=== PATIENT | female | born 1960 | race Caucasian/White ===

== ENCOUNTER 2022-11-16 10:20 | Inpatient (IN) | payer OTHER, SELFPAY ==
[2022-11-16] VITALS (21 sets, daily range): BP systolic 140–176; BP diastolic 89–122; PULSE 96–119; RESP 12–19; TEMP 36.1–36.4; O2SAT 92–98; BMI 27.6
--- NOTE | ~2022-11-16 | XR_ITS ---
EXAM: XR abdomen NG/feed tube insert DATE: 11/16/2022 21:20 HISTORY: post NG tube placement . COMPARISON: 11/16/2022 at 3:22 PM. FINDINGS: Clear lung bases. NG tube, tip and side port project over the stomach. Dilated loop of sma ll bowel in the central abdomen. No organomegaly. No abnormal abdominal calcification. Regional bones and soft tissues normal for age. IMPRESSION: NG tube, in good position. Dilated small bowel. Reviewed, dictated and finalized at location K. NESS INTERN
--- NOTE | ~2022-11-16 | XR_ITS ---
EXAMINATION: XR abdomen/kub 1V DATE: 11/16/2022 15:29 INDICATION: Abdominal pain. TECHNIQUE: A supine view of the abdomen on 2 radiographs was obtained. COMPARISON: CT abdomen and pelvis 02/22/2019 FINDINGS: There is dilated small bowel in the left abdomen. The colon is decompressed. There are phle boliths in the pelvis. IMPRESSION: 1. Dilated small bowel, consistent with adynamic ileus versus small bowel obstruction. Consider CT . Reviewed, dictated and finalized at location A. NE CONSULTANT IMPRESSION: 1. Dilated small bowel, consistent with adynamic ileus versus small bowel obstr uction. Consider CT .
--- NOTE | ~2022-11-16 | XR_ITS ---
Supine views of the abdomen Clinical history: Small bowel obstruction Findings: Bowel gas pattern is nonspecific, with NG tube in place. No evidence for obstruction or neisha e air. No abnormal mass lesion or calcification is seen. Osseous structures are intact. Impression: NG tube in place. Nonspecific bowel gas pattern. Reviewed, dictated and finalized at [facility]. SALTER Impression: NG tube in place. Nonspecific bowel gas pattern.
--- NOTE | ~2022-11-16 | CT_ITS ---
EXAMINATION: CT abdomen pelvis w con DATE: 11/16/2022 19:17 INDICATION: mid abd pain, Hx of SBO, possible SBP on XR TECHNIQUE: Computed tomography (CT) of the abdomen and pelvis was performed with 100 mL Omnipaque-350 intravenous contrast. Automated exposure control and iterative reconstruction technique were employe d. The dose-length product was 307.36 mGy-cm. COMPARISON: 02/22/2019. FINDINGS: Lower thorax: Unremarkable Liver: Mild diffuse fatty infiltration. Biliary/Gallbladder: Gallbladder is normal. No bile duct dilation. Pancreas: No mass or duct dilation. Spleen: Normal. Adrenals:No mass. Kidneys: No mass, stone, or hydronephrosis. GI tract: Multiple loops of dilated small bowel in the left mid and lower abdomen. Transition point i n the deep pelvis just proximal to an area of segmental small bowel wall edema. Interloop fluid. No p neumatosis. No portal venous gas. No large bowel dilation. Normal appendix. Mesentery/Peritoneum: No mass or free air. Small volume perihepatic, perisplenic, and deep pelvic flu id. Retroperitoneum: No mass. Atherosclerotic abdominal aortic and/or arterial calcifications. Pelvis: Decompressed urinary bladder. Surgically absent uterus.. Soft Tissues: Soft tissues and body wall unremarkable. Bones: No acute osseous finding. IMPRESSION: Recurrent small bowel obstruction, likely secondary to stricture from adjacent segmental ischemic, in fectious, or inflammatory small bowel disease, or possibly a deep pelvic adhesion. Small volume ascit es. Reviewed, dictated and finalized at location K. PRESIDENT SUPPLY CHAIN IMPRESSION: Recurrent small bowel obstruction, likely secondary to stricture from adjacent segmental ischemic, infectious, or inflammatory small bowel disease, or possibl y a deep pelvic adhesion. Small volume ascites.
--- NOTE | ~2022-11-16 | XR_ITS ---
EXAMINATION: XR sm bowel follow through WS DATE: 11/18/2022 11:36 INDICATION: Small bowel obstruction TECHNIQUE: Signal Worker radiograph(s) of the abdomen was/were obtained. Oral contrast was administered, and sequential radiographs of the abdomen were obtained until oral contrast was noted to be in the proxi mal colon. Spot fluoroscopic images of the small bowel were obtained. Fluoroscopy exposure time was 1 .6 minutes. The DAP for this procedure was 31.437 Gycm2. COMPARISON: 02/23/2019 FINDINGS: Transit time from the stomach to proximal colon was approximately 1.5 hours. There is kathy l caliber and mucosal fold pattern throughout the small bowel. Terminal ileum appears unremarkable. No tethering or abnormal mass effect observed upon the small bowel with real-time fluoroscopy. IMPRESSION: 1. Unremarkable small bowel follow-through. Reviewed, dictated and finalized at location A. S DEVELOPMENT EXECUTIVE
[2022-11-16 10:53] LABS: Basophils Absolute Auto 0.1 K/mm3 (0.0-0.1); Basophils Percent Auto 0.6 % (0.2-1.2); Eosinophils Percent Auto 0.1 % (0-4.4); Hematocrit 44.3 % (37.0-47.0); Hemoglobin 14.5 g/dL (12.0-15.0); Immature Granulocyte Absolute 0.05 K/mm3 (0.00-0.031); Immature Granulocyte Percent A 0.5 % (0-0.5); Lymphocytes Absolute Auto 0.97 K/mm3 (0.9-3.2); Lymphocytes Percent Auto 9.2 % (18.3-44.2); Mean Corpuscular HGB Conc 32.7 g/dl (32-36); Mean Corpuscular Hemoglobin 30.1 pg (26-34); Mean Corpuscular Volume 92.1 fl (80-100); Mean Platelet Volume 9.2 fl (7.4-10.4); Monocytes Absolute Auto 0.4 K/mm3 (0.1-0.6); Monocytes Percent Auto 3.5 % (2.6-8.5); Neutrophils Percent Auto 86.1 % (45.5-73.1); Platelet Count Result 373 k/mm3 (150-375); Red Blood Count 4.81 M/mm3 (4.2-5.4); Red Cell Distribution Width 13.1 % (11.5-14.5); White Blood Count 10.5 K/mm3 (4.5-10.0)
[2022-11-16 11:02] LABS: Alanine Aminotransferase 36 U/L (6-35); Alkaline Phosphatase 102 U/L (38-126); Anion Gap 10 mmol/L (8-16); Aspartate Amino Transferase 35 U/L (14-36); Bilirubin,Total 0.9 mg/dL (0.2-1.3); Blood Urea Nitrogen 17 mg/dL (7-17); Calcium 10.1 mg/dL (8.4-10.2); Carbon Dioxide 29 mmol/L (22-30); Chloride 98 mmol/L (98-107); Estimated CRCL calculation 64 ml/min; Estimated Glomerular Filt Rate > 60; Glucose 123 mg/dL (65-110); Lipase 77 U/L (23-300); Potassium 3.8 mmol/L (3.4-5.0); Sodium 137 mmol/L (137-145)
[2022-11-16 11:31] LABS: Add Urine Microscopic? YES; Appearance Urine Clear (Clear); Bilirubin Urine Negative (Negative); Blood Urine Negative (Negative); Color Urine Yellow (Yellow); Glucose Urine UA Negative (Negative); Ketones Urine 1+ mg/dL (Negative); Leukocyte Esterase Ur Negative LEU/UL (Negative); Nitrate Urine Negative (Negative); Protein Urine Negative (Negative); Specific Grav Ur 1.015 (1.001-1.035); Urobilinogen Urine 0.2 mg/dL (<2.0)
[2022-11-16 11:38] LABS: Mucus Urine Rare /lpf; RBC Urine 0-2 /hpf (0-2); Squamous Epithelial Cell Urine Few /hpf (Few); WBC Urine 0-3 /hpf
[2022-11-16 19:10] LABS: Lactic Acid Reflex 1.4 mmol/L (0.7-2.0)
--- NOTE | 2022-11-16 19:12 | ED.ABDPAIN ---
HPI - Abdominal Pain General Chief Complaint: Abdominal Pain <KAITLIN Limon Filed: 11/17/22 02:07> Stated Complaint: abd pain <KAITLIN Lmion Filed: 11/17/22 02:07> Time Seen by Provider: 11/16/22 18:46 <KAITLIN Limon Filed: 11/17/22 02:07> Source: patient and old records reviewed <KAITLIN Limon Filed: 11/17/22 02:07> Mode of arrival: ambulatory <KAITLIN Limon Filed: 11/17/22 02:07> Limitations: no limitations <KAITLIN Limon Filed: 11/17/22 02:07> History of Present Illness HPI narrative: Patient is a 62 y/o female who presents to the ED with c/o upper abdominal pain. Patient reports she developed pain in her upper abdomen around 2 AM this morning. Pain has been persistent since then. She has not ate anything today, and did drink a very small amount of fluid. She has a history of 2 previous bowel obstructions, and states pain feels similar. She had diarrhea this morning and an episode of vomiting in the ED waiting room, but states she forced herself to vomit. Denies current nausea. She has not taken anything for pain. She does report acid reflux symptoms and states she did not take her omeprazole today. Denies any fever, rectal bleeding. Per records, patient last had small bowel obstruction in 2019 which was treated conservatively with NG tube, bowel rest. Patient has history of hysterectomy and oophorectomy in the past. <KAITLIN Limon Filed: 11/17/22 02:07> Related Data Home Medications: Home Medications Medication Instructions Recorded Confirmed atorvastatin 10 mg tablet 10 mg PO DAILY 11/16/22 11/16/22 cholecalciferol (vitamin D3) 125 125 mcg PO DAILY 11/16/22 11/16/22 mcg (5,000 unit) tablet (Vitamin D3) multivitamin 1 tablet PO DAILY 11/16/22 11/16/22 omeprazole 20 mg capsule,delayed 20 mg PO BID 11/16/22 11/16/22 release <KAITLIN Limon Last Filed: 11/17/22 02:07> Allergies/Adverse Reactions: Allergies Allergy/AdvReac Type Severity Reaction Status Date / Time Sulfa (Sulfonamide Allergy Severe HIVES Verified 11/16/22 20:24 Antibiotics) <Julianne Aldridge PA-C - Last Filed: 11/17/22 02:07> Review of Systems Review of Systems: CONSTITUTIONAL: Denies fever, chills, or sweats. CARDIOVASCULAR: Denies chest pain. RESPIRATORY: Denies dyspnea. GASTROINTESTINAL: See HPI. GENITOURINARY: Denies dysuria or hematuria. <KAITLIN Limon Last Filed: 11/17/22 02:07> All systems reviewed & are unremarkable except as noted in HPI and below <KAITLIN Limon Last Filed: 11/17/22 02:07> [facility] Past Medical History Medical History: Medical History GERD (gastroesophageal reflux disease) SBO (small bowel obstruction) Thyroid disorder <KAITLIN Limon Last Filed: 11/17/22 02:07> Surgical History Surgical History: Surgical History History of hysterectomy History of oophorectomy <KAITLIN Limon Last Filed: 11/17/22 02:07> Family History Family History: Family History Father Cancer Hypertension Mother Kidney disease Hypertension Sibling Kidney disease Grandparent Cancer Kidney disease <KAITLIN Limon Last Filed: 11/17/22 02:07> Social History Social History: Social History Smoking status: Never smoker Alcohol intake: current Substance use: never Lack of Transportation: No Lack of Food: Never True Current Housing: I Have Housing Concerned About Future Housing: No Difficulty Paying Gas/Electric Bills: No Difficulty Paying for Meds: No Currently Unemployed:
--- NOTE | 2022-11-16 20:12 | PM.IMHP ---
H&P: HPI History of Present Illness Date/Time: 11/16/22 20:12 Chief Complaint: Abdominal pain Narrative: This is a 62-year-old female with past medical history significant for dyslipidemia, GERD, recurrent small-bowel obstruction, remote history of hysterectomy, remote history of oophorectomy. Patient presents to the emergency room due to abdominal pain diffusely localized intermittent 10/10 in intensity colic like for 1 day duration has not been able to eat accompanied by nausea and vomiting had 1 small bowel movement the day prior has not been able to pass gas, denies any fevers, rigors, chills, hematemesis, melena, bright red blood per rectum. Preliminary workup was significant for abdominal x-ray was reported as: IMPRESSION: 1. Dilated small bowel, consistent with adynamic ileus versus small bowel obstruction. Consider CT . CT of abdomen and pelvis was reported as: FINDINGS: Lower thorax: Unremarkable Liver: Mild diffuse fatty infiltration.? Biliary/Gallbladder: Gallbladder is normal. No bile duct dilation. Pancreas: No mass or duct dilation. Spleen: Normal. Adrenals:No mass. Kidneys: No mass, stone, or hydronephrosis. GI tract: Multiple loops of dilated small bowel in the left mid and lower abdomen. Transition point in the deep pelvis just proximal to an area of segmental small bowel wall edema. Interloop fluid. No pneumatosis. No portal venous gas. No large bowel dilation. Normal appendix. Mesentery/Peritoneum: No mass or free air. Small volume perihepatic, perisplenic, and deep pelvic fluid. Retroperitoneum: No mass. Atherosclerotic abdominal aortic and/or arterial calcifications. Pelvis: Decompressed urinary bladder. Surgically absent uterus.. Soft Tissues: Soft tissues and body wall unremarkable. Bones:? No acute osseous finding. IMPRESSION: Recurrent small bowel obstruction, likely secondary to stricture from adjacent segmental ischemic, infectious, or inflammatory small bowel disease, or possibly a deep pelvic adhesion. Small volume ascites. Review of Systems Review of Systems: Presents to the emergency room with abdominal pain, nausea, vomiting, constipation, abdominal distention. Constitutional: Constitutional: Denies chills, Denies fatigue, Denies fever(s), Denies lethargy, Denies malaise, Denies night sweats, Reports poor appetite and Denies weakness Eyes: Eyes: Denies change in vision ENT: Denies dysphagia, Denies nasal congestion, Denies nasal discharge and Denies odynophagia Cardiovascular: Cardiovascular: Denies chest pain, Denies syncope, Denies irregular heart rhythm, Denies leg edema, Denies lightheadedness, Denies radiating jaw, neck or arm pain and Denies dyspnea Respiratory: Respiratory: Reports change in phlegm color, Denies chest congestion, Denies cough, Denies pain on inspiration and Denies dyspnea Gastrointestinal: Gastrointestinal: Reports abdominal pain, Denies melena, Reports bloating, Denies hematochezia, Denies coffee ground emesis, Denies dyspepsia, Denies heartburn, Denies diarrhea, Reports nausea and Reports vomiting Genitourinary: Genitourinary: Denies dysuria Musculoskeletal: Musculoskeletal: Denies myalgias, Denies joint swelling and Denies muscle weakness Integumentary/Breasts: Skin/Breast: Denies rash Neurologic: Denies vertigo, Denies dizziness, Denies focal weakness and Denies Sensory deficit (Neuro) Psychiatric: Psychiatric: Reports no additional psychiatric complaints Endocrine: Endocrine: Denies cold intolerance, Denies flushing, Denies heat intolerance, Denies polyphagia, Denies polydipsia and Denies palpitations Hematologic/Lymphatic: Hematologic/Lymphatic: Reports no additional hematologic/lymphatic complaints and Reports as per HPI Allergic/Immunologic: Allergic/Immunologic: Reports no additional allergic/immunologic complaints and Reports as per HPI [facility] Past Medical History Medical History GERD (gastroeso
[2022-11-16] MEDS: SODIUM CHLORIDE 0.9% IV 1,000 ML 999 ML IV CONT (20:24)
[2022-11-16] MEDS: ONDANSETRON INJ 4 MG/2 ML VIAL IV PUSH (20:25)
[2022-11-16] MEDS: PANTOPRAZOLE SODIUM IV 40 MG VIAL IV PUSH (20:27)
[2022-11-16 20:36] LABS: Influenza A QL RT-PCR Negative (Negative); Influenza B QL RT-PCR Negative (Negative); RSV RNA, RT-PCR Negative (Negative); SARS-CoV-2 RNA PCR Negative
--- NOTE | 2022-11-16 21:14 | PC.NURSE ---
DR. Leon at bedside and confirmed NG placement and verbalized okay to hook pt up to low-intermittent at this time.
[2022-11-16] MEDS: MORPHINE SULFATE (*CRX) 4 MG/ML INJ IV PUSH (21:52)
--- NOTE | 2022-11-16 22:31 | ADMGEN ---
This patient, Jeanette Gandara, was admitted to [facility] Surg Room 314-01. Patient/family oriented to hospital policies and general routines including ID bracelet, bed and alarms, visiting hours, pain management, procedures, bathroom and other care routines, personal items, smoking policy, room service/diet, and visiting hours. Information on how to activate the Rapid Response Team has been discussed. Patient/Family are encouraged to report perceived risks to care and to ask questions if they do not understand what they are told or what they should do.
[2022-11-17] MEDS: DEXTROSE 5%/0.45% SOD CHL 1,000 ML 75 ML IV CONT ×2 (05:36→20:09)
[2022-11-17 06:00] VITALS: BP 110/74; PULSE 82; RESP 16; TEMP 36.4; O2SAT 93
[2022-11-17 08:12] LABS: Basophils Percent Auto 0.5 % (0.2-1.2); Eosinophils Absolute Auto 0.2 K/mm3 (0-0.3); Eosinophils Percent Auto 2.2 % (0-4.4); Hematocrit 38.4 % (37.0-47.0); Hemoglobin 12.3 g/dL (12.0-15.0); Immature Granulocyte Absolute 0.02 K/mm3 (0.00-0.031); Immature Granulocyte Percent A 0.3 % (0-0.5); Lymphocytes Absolute Auto 1.82 K/mm3 (0.9-3.2); Lymphocytes Percent Auto 24.7 % (18.3-44.2); Mean Corpuscular Hemoglobin 30.2 pg (26-34); Mean Corpuscular Volume 94.3 fl (80-100); Mean Platelet Volume 9.2 fl (7.4-10.4); Monocytes Absolute Auto 0.7 K/mm3 (0.1-0.6); Monocytes Percent Auto 10.1 % (2.6-8.5); Neutrophils Absolute Auto 4.6 K/mm3 (1.3-6.7); Neutrophils Percent Auto 62.2 % (45.5-73.1); Platelet Count Result 281 k/mm3 (150-375); Red Blood Count 4.07 M/mm3 (4.2-5.4); Red Cell Distribution Width 13.5 % (11.5-14.5); White Blood Count 7.4 K/mm3 (4.5-10.0)
[2022-11-17 08:28] LABS: Alanine Aminotransferase 24 U/L (6-35); Albumin Level 3.7 g/dL (3.5-5.1); Alkaline Phosphatase 67 U/L (38-126); Anion Gap 5 mmol/L (8-16); Aspartate Amino Transferase 23 U/L (14-36); Bilirubin,Total 0.8 mg/dL (0.2-1.3); Blood Urea Nitrogen 21 mg/dL (7-17); Calcium 8.5 mg/dL (8.4-10.2); Carbon Dioxide 31 mmol/L (22-30); Chloride 99 mmol/L (98-107); Estimated CRCL calculation 57 ml/min; Estimated Glomerular Filt Rate > 60; Glucose 113 mg/dL (65-110); Potassium 3.4 mmol/L (3.4-5.0); Sodium 135 mmol/L (137-145)
[2022-11-17] MEDS: ENOXAPARIN 40 MG/0.4 ML SYRINGE SUB-Q (09:05)
[2022-11-17] MEDS: ONDANSETRON INJ 4 MG/2 ML VIAL IV PUSH ×3 (10:42→20:40)
--- NOTE | 2022-11-17 12:38 | PM.CNGS ---
Assessment and Plan Assessment and plan (1) SBO (small bowel obstruction): Code(s): K56.609 - Unspecified intestinal obstruction, unspecified as to partial versus complete obstruction Status: Acute Assessment and Plan: I have reviewed the imaging and discussed the findings with the patient. She has evidence of a small-bowel obstruction with transition point in the deep pelvis. She has had fairly minimal surgery in the past however what surgery she has had has been in the pelvis which raises suspicion for adhesions as the cause of this obstruction. Patient is showing some slight bowel function with passing of flatus and symptomatically she does appear to be improving. Will continue NG decompression today and get a follow-up abdominal x-ray tomorrow morning. Could consider Gastrografin small-bowel follow-through if there is still no sign of complete resolution. I discussed with patient that avoiding surgery would be the goal but if she is still showing signs of bowel obstruction she might eventually require either laparoscopic or exploratory surgery. (2) History of hysterectomy: Code(s): Z90.710 - Acquired absence of both cervix and uterus Status: Acute (3) History of oophorectomy: Status: Acute History of Present Illness Consult details Consult date: 11/17/22 Reason for consult: other (bowel obstruction) Requesting physician: Julianne Aldridge PA-C Narrative: This is a 62-year-old woman who I am asked to see for a small-bowel obstruction. She began having abdominal pain and slightly loose stool around 2:00 a.m. yesterday morning. She was feeling slightly bloated and nauseated as well. Her pain was continuing to progress throughout the day and therefore she presented to the emergency department last night. She did vomit once in the waiting room in the emergency department. She denies any particular food that she ate that could have caused this, however she does feel that she ate a lot over new year's Day and did report eating a lot of peanuts. She denies any other ill contacts, denies hematochezia or melena, and denies prior history of inflammatory bowel disease. A CT of her abdomen and pelvis showed evidence of a small-bowel obstruction with small bowel wall thickening just distal to this area. An NG tube was placed in the emergency department and she was admitted for further treatment. She does feel that her pain has improved since NG was placed. She is passing some flatus but has not had a bowel movement since being admitted. The patient has had partial bowel obstructions in the past. She had an episode in 2007 which was about 10 months after undergoing a vaginal hysterectomy. She then also had another episode in 2019. Both episodes resolved with NG tube decompression and bowel rest. Review of Systems Review of Systems: All systems reviewed & are unremarkable except as noted in HPI and below Constitutional: Constitutional: Denies chills and Denies fever(s) Eyes: Eyes: Denies change in vision ENT: Denies hearing loss, Denies neck pain and Denies sore throat Cardiovascular: Cardiovascular: Denies chest pain and Denies dyspnea Respiratory: Respiratory: Denies cough, Denies dyspnea and Denies wheezing Gastrointestinal: Gastrointestinal: Reports as per HPI Genitourinary: Genitourinary: Denies hematuria and Denies dysuria Musculoskeletal: Musculoskeletal: Denies arthralgias, Denies joint swelling and Denies neck pain Allergic/Immunologic: Allergic/Immunologic: Denies wheezing [facility] Past Medical History Medical History GERD (gastroesophageal reflux disease) SBO (small bowel obstruction) Thyroid disorder Surgical History Surgical History History of hysterectomy History of oophorectomy Family History Family History (Reviewed 11/17/22 @ 12:45 by Jameson Kaur
--- NOTE | 2022-11-17 12:39 | PM.IMPN ---
Progress Note: A&P Assessment and Plan (1) SBO (small bowel obstruction): Code(s): K56.609 - Unspecified intestinal obstruction, unspecified as to partial versus complete obstruction Status: Acute Assessment and Plan: -noted on CT abd/pelv -NPO w/ ice chips per surgery -continue NG tube -further recommendations per surgery (2) Nausea and vomiting: Code(s): R11.2 - Nausea with vomiting, unspecified Status: Acute Assessment and Plan: -secondary to above -improving, continue supportive care (3) Abdominal pain: Code(s): R10.9 - Unspecified abdominal pain Status: Acute Assessment and Plan: -as above (4) GERD (gastroesophageal reflux disease): Code(s): K21.9 - Gastro-esophageal reflux disease without esophagitis Status: Acute Assessment and Plan: -resume PPI when no longer NPO Subjective Date/time seen: 11/17/22 12:39 Interval history: 62-year-old female with past medical history significant for dyslipidemia, GERD, recurrent small-bowel obstruction, remote history of hysterectomy, remote history of oophorectomy, admitted for recurrent SBO. Pt is feeling better. Still has NG. Advanced to ice chips today which she states has gone well. No abd pain. Intermittent nausea, no vomiting. Has CUELLO and sinus congestion. Review of Systems Review of Systems: All systems reviewed & are unremarkable except as noted in HPI and below Exam Narrative: General: No acute distress, non toxic appearing Eyes: PERRL, no scleral icterus HEENT: NCAT, external ears normal, MMM, NG in place Respiratory: No respiratory distress, Lungs CTA bilaterally, no wheezing Cardiovascular: RRR, no murmur Abdominal: Soft, nontender, non distended, no rebound or guarding, +BS Musculoskeletal: Moves all 4 extremities, no edema Neurological: A/Ox3, speech clear, no facial asymmetry Skin: Warm, dry, no rashes Psychiatric: Normal affect, normal mood Objective Data Vital Signs Vital Signs: Vital Signs - 24 hr 11/16/22 12:43 11/16/22 17:00 11/16/22 18:56 Temperature 97.5 F L 97.6 F Pulse Rate 112 H 119 H 104 H Respiratory Rate 16 18 12 Blood Pressure 147/99 H 147/99 H 174/115 H Pulse Oximetry 95 97 95 Oxygen Delivery Room Air 11/16/22 19:02 11/16/22 19:31 11/16/22 19:32 Temperature Pulse Rate 106 H 105 H 106 H Respiratory Rate 12 18 14 Blood Pressure 158/102 H Pulse Oximetry 95 96 95 Oxygen Delivery 11/16/22 19:34 11/16/22 19:45 11/16/22 19:46 Temperature Pulse Rate 102 H 103 H 107 H Respiratory Rate 17 14 15 Blood Pressure 167/106 H Pulse Oximetry 96 96 94 Oxygen Delivery 11/16/22 20:00 11/16/22 20:15 11/16/22 20:16 Temperature Pulse Rate 108 H 110 H 112 H Respiratory Rate 13 14 15 Blood Pressure 176/111 H Pulse Oximetry 97 93 92 Oxygen Delivery 11/16/22 20:27 11/16/22 20:35 11/16/22 20:45 Temperature Pulse Rate 118 H 109 H 105 H Respiratory Rate 13 15 14 Blood Pressure 160/122 H Pulse Oximetry 93 94 96 Oxygen Delivery 11/16/22 21:00 11/16/22 21:01 11/16/22 21:15 Temperature Pulse Rate 108 H 109 H 107 H Respiratory Rate 16 19 13 Blood Pressure 150/108 H Pulse Oximetry 98 96 94 Oxygen Delivery 11/16/22 21:33 11/16/22 23:00 11/17/22 01:35 Temperature 97.0 F L Pulse Rate 103 H 96 Respiratory Rate 15 18 Blood Pressure 140/89 Pulse Oximetry 94 97 Oxygen Delivery Room Air 11/17/22 06:00 11/17/22 09:05 Temperature 97.5 F L Pulse Rate 82 Respiratory Rate 16 Blood Pressure 110/74 Pulse Oximetry 93 Oxygen Delivery Room Air Intake/Output Intake/Output: Intake & Output 11/14/22 11/15/22 11/16/22 11/17/22 23:59 23:59 23:59 23:59 Intake Total 1100 100 Output Total 50 Balance 1100 50 Meds/Results Medications: Active Medications Generic Name Dose Route Start Last Admin Trade Name Freq PRN Reason Stop Do
[2022-11-17 13:54] VITALS: BP 152/91; PULSE 86; RESP 18; TEMP 36.1; O2SAT 95
[2022-11-17] MEDS: HYDROmorphone HCL INJ (*CRX) 1 MG/ML SYR 0.5 MG IV PUSH (20:38)
[2022-11-17] MEDS: PANTOPRAZOLE SODIUM IV 40 MG VIAL IV PUSH (20:46)
[2022-11-17 22:00] VITALS: BP 143/81; PULSE 85; RESP 16; TEMP 36.4; O2SAT 93
[2022-11-18 06:00] VITALS: BP 128/73; PULSE 79; RESP 16; TEMP 36.1; O2SAT 95
[2022-11-18] MEDS: diphenhydrAMINE HCl INJ 50 MG/ML VIAL 25 MG IV PUSH ×3 (06:10→20:52)
[2022-11-18 06:50] LABS: Hemoglobin 12.9 g/dL (12.0-15.0); Mean Corpuscular HGB Conc 33.1 g/dl (32-36); Mean Corpuscular Hemoglobin 30.2 pg (26-34); Mean Corpuscular Volume 91.3 fl (80-100); Mean Platelet Volume 9.2 fl (7.4-10.4); Platelet Count Result 345 k/mm3 (150-375); Red Blood Count 4.27 M/mm3 (4.2-5.4); Red Cell Distribution Width 12.8 % (11.5-14.5); White Blood Count 7.1 K/mm3 (4.5-10.0)
[2022-11-18 07:00] LABS: Potassium 3.5 mmol/L (3.4-5.0)
[2022-11-18 07:02] LABS: Anion Gap 7 mmol/L (8-16); Blood Urea Nitrogen 11 mg/dL (7-17); Calcium 8.8 mg/dL (8.4-10.2); Carbon Dioxide 34 mmol/L (22-30); Chloride 99 mmol/L (98-107); Estimated CRCL calculation 64 ml/min; Estimated Glomerular Filt Rate > 60; Glucose 111 mg/dL (65-110); Sodium 140 mmol/L (137-145)
[2022-11-18 09:00] VITALS: PULSE 79; RESP 16; O2SAT 95
[2022-11-18] MEDS: ENOXAPARIN 40 MG/0.4 ML SYRINGE SUB-Q (11:50)
[2022-11-18] MEDS: PANTOPRAZOLE SODIUM IV 40 MG VIAL IV PUSH ×2 (11:51→20:52)
[2022-11-18] MEDS: DEXTROSE 5%/0.45% SOD CHL 1,000 ML 75 ML IV CONT (11:52)
[2022-11-18] MEDS: KETOROLAC 15 MG/ML VIAL (*BKC) IV PUSH (13:38)
[2022-11-18 14:10] VITALS: BP 158/95; PULSE 86; RESP 16; TEMP 36.3; O2SAT 97
--- NOTE | 2022-11-18 16:43 | PM.PNGS ---
Progress Note: A&P Assessment and Plan (1) SBO (small bowel obstruction): Code(s): K56.609 - Unspecified intestinal obstruction, unspecified as to partial versus complete obstruction Status: Acute Assessment and Plan: I reviewed the Xray images. Bowel obstruction seems to be resolving. Will remove NG and start clear liquids. Advance diet tomorrow if doing well. Possibly home tomorrow afternoon if tolerating solid diet. (2) History of hysterectomy: Code(s): Z90.710 - Acquired absence of both cervix and uterus Status: Acute (3) History of oophorectomy: Status: Acute Subjective Subjective Date/Time Seen: 11/18/22 16:43 Interval history: Bowels moving. No more abdominal pain. No bloating or nausea while NG clamped for SBFT. Exam GI: Inspection: non-distended GI Palp: Yes Soft to palpation, No Tenderness to palpation present (GI) and No Guarding due to palpation present (GI) Auscultation: normal bowel sounds Objective Data Vital Signs Vital Signs: Vital Signs - 24 hr 11/17/22 22:00 11/18/22 06:00 11/18/22 09:00 Temperature 36.4 C 36.1 C L Pulse Rate 85 79 79 Respiratory Rate 16 16 16 Blood Pressure 143/81 H 128/73 Pulse Oximetry 93 95 95 Oxygen Delivery Room Air 11/18/22 14:10 Temperature 36.3 C L Pulse Rate 86 Respiratory Rate 16 Blood Pressure 158/95 H Pulse Oximetry 97 Oxygen Delivery Intake/Output Intake/Output: Intake & Output 11/15/22 11/16/22 11/17/22 11/18/22 23:59 23:59 23:59 23:59 Intake Total 1100 1300 1200 Output Total 50 400 Balance 1100 1250 800 Meds/Results Medications: Active Medications Generic Name Dose Route Start Last Admin Trade Name Freq PRN Reason Stop Dose Admin Diphenhydramine HCl 25 mg 11/18/22 12:10 11/18/22 13:37 Diphenhydramine Hcl Inj 50 Mg/Ml Vial IV PUSH 25 mg Q6HR PRN Administration Itching Enoxaparin Sodium 40 mg 11/17/22 09:00 11/18/22 11:50 Enoxaparin 40 Mg/0.4 Ml Syringe SUB-Q 40 mg DAILY LUCIANO Administration Hydromorphone HCl 0.5 mg 11/17/22 20:28 11/17/22 20:38 Hydromorphone Hcl Inj (*Crx) 1 Mg/Ml Syr IV PUSH 0.5 mg Q3H PRN Administration Pain Rated 7-10 Dextrose/Sodium Chloride 1,000 mls @ 75 mls/hr 11/17/22 05:25 11/18/22 11:52 Dextrose 5% Sodium Chloride 0.45% IV CONT 75 mls/hr .[id number] LUCIANO Administration Ketorolac Tromethamine 15 mg 11/18/22 12:08 11/18/22 13:38 Ketorolac 15 Mg/Ml Vial (*Bkc) IV PUSH 15 mg Q6H PRN Administration Pain Rated 4-6 Loratadine 10 mg 11/19/22 09:00 Loratadine 10 Mg Tablet PO QAM LUCIANO Ondansetron HCl 4 mg 11/16/22 20:04 11/17/22 20:40 Ondansetron Inj 4 Mg/2 Ml Vial IV PUSH 4 mg Q4H PRN Administration Nausea Pantoprazole Sodium 40 mg 11/17/22 21:00 11/18/22 11:51 Pantoprazole Sodium Iv 40 Mg Vial IV PUSH 40 mg Q12HR LUCIANO Administration Radiology Results: ITS Impressions Abdomen/Pelvis CT 11/16/22 19:20 IMPRESSION: Recurrent small bowel obstruction, likely secondary to stricture from adjacent segmental ischemic, infectious, or inflammatory small bowel disease, or possibly a deep pelvic adhesion. Small volume ascites. Abdomen X-Ray 11/18/22 06:40 Impression: NG tube in place. Nonspecific bowel gas pattern. Small Bowel X-Ray 11/18/22 14:16 IMPRESSION: 1. Unremarkable small bowel follow-through. Labs Labs: Laboratory Results - last 24 hr 11/18/22 11/18/22 06:16 06:16 WBC 7.1 RBC 4.27 Hgb 12.9 Hct 39.0 MCV 91.3 MCH 30.2 MCHC 33.1 RDW 12.8 Plt Count 345 MPV 9.2 Sodium 140 Potassium 3.5 Chloride 99 Carbon Dioxide 34 H Anion Gap 7 L BUN 11 D Creatinine 0.80 Estim Creat Clear Calc 64 Estimated GFR > 60 Glucose 111 H Calcium 8.8
--- NOTE | 2022-11-18 17:10 | PM.IMPN ---
Progress Note: A&P Assessment and Plan (1) SBO (small bowel obstruction): Code(s): K56.609 - Unspecified intestinal obstruction, unspecified as to partial versus complete obstruction Status: Acute Assessment and Plan: -noted on CT abd/pelv -repeat small-bowel xr reveals small retraction has resolved -d/c NG tube -start clear diet per General surgery Follow-up [facility]IL[facility] Ra Welch anna for the a.m. (2) Nausea and vomiting: Code(s): R11.2 - Nausea with vomiting, unspecified Status: Acute Assessment and Plan: -secondary to above -improving, continue supportive care (3) Abdominal pain: Code(s): R10.9 - Unspecified abdominal pain Status: Acute Assessment and Plan: -as above (4) GERD (gastroesophageal reflux disease): Code(s): K21.9 - Gastro-esophageal reflux disease without esophagitis Status: Acute Assessment and Plan: -resume PPI when no longer NPO Subjective Date/time seen: 11/18/22 17:10 Saw and examined the patient. Abdomen pain is improving, has no nausea vomiting, NG tube in setting parent denies chest pain, shortness breast, palpitation Interval history: 62-year-old female with past medical history significant for dyslipidemia, GERD, recurrent small-bowel obstruction, remote history of hysterectomy, remote history of oophorectomy, admitted for recurrent SBO. Pt is feeling better. Still has NG. Advanced to ice chips today which she states has gone well. No abd pain. Intermittent nausea, no vomiting. Has CUELLO and sinus congestion. Review of Systems Review of Systems: All systems reviewed & are unremarkable except as noted in HPI and below Constitutional: Constitutional: Denies chills, Denies fatigue, Denies fever(s), Denies lethargy, Denies malaise, Denies night sweats, Reports poor appetite and Denies weakness Eyes: Eyes: Denies change in vision ENT: Denies dysphagia, Denies vertigo, Denies dizziness, Denies nasal congestion, Denies nasal discharge and Denies odynophagia Cardiovascular: Cardiovascular: Denies chest pain, Denies syncope, Denies irregular heart rhythm, Denies leg edema, Denies lightheadedness, Denies radiating jaw, neck or arm pain, Denies palpitations and Denies dyspnea Respiratory: Respiratory: Reports change in phlegm color, Denies chest congestion, Denies cough, Denies pain on inspiration and Denies dyspnea Gastrointestinal: Gastrointestinal: Reports abdominal pain, Denies melena, Reports bloating, Denies hematochezia, Denies coffee ground emesis, Denies dysphagia, Denies dyspepsia, Denies heartburn, Denies diarrhea, Reports nausea, Denies odynophagia and Reports vomiting Genitourinary: Genitourinary: Denies dysuria Musculoskeletal: Musculoskeletal: Denies myalgias, Denies joint swelling and Denies muscle weakness Integumentary/Breasts: Skin/Breast: Denies rash Neurologic: Denies vertigo, Denies dizziness, Denies syncope, Denies focal weakness, Denies Sensory deficit (Neuro) and Denies weakness Psychiatric: Psychiatric: Reports no additional psychiatric complaints Endocrine: Endocrine: Denies cold intolerance, Denies fatigue, Denies flushing, Denies heat intolerance, Denies polyphagia, Denies polydipsia and Denies palpitations Hematologic/Lymphatic: Hematologic/Lymphatic: Reports no additional hematologic/lymphatic complaints and Reports as per HPI Allergic/Immunologic: Allergic/Immunologic: Reports no additional allergic/immunologic complaints and Reports as per HPI Exam Narrative: General: No acute distress, non toxic appearing Eyes: PERRL, no scleral icterus HEENT: NCAT, external ears normal, MMM, NG in place Respiratory: No respiratory distress, Lungs CTA bilaterally, no wheezing Cardiovascular: RRR, no murmur Abdominal: Soft, nontender, non distended, no rebound or guarding, +BS Musculoskeletal: Moves all 4 extremities, no edema Neurological: A/Ox3, speech clear, no facial asymmetry
[2022-11-18 22:00] VITALS: BP 143/87; PULSE 81; RESP 18; TEMP 36.2; O2SAT 96
[2022-11-19] MEDS: DEXTROSE 5%/0.45% SOD CHL 1,000 ML 75 ML IV CONT (02:37)
[2022-11-19 06:00] VITALS: BP 119/66; PULSE 74; RESP 18; TEMP 36.4; O2SAT 96
[2022-11-19 07:16] LABS: Lactic Acid Reflex 0.8 mmol/L (0.7-2.0)
[2022-11-19 07:19] LABS: Anion Gap 5 mmol/L (8-16); Blood Urea Nitrogen 12 mg/dL (7-17); Calcium 8.5 mg/dL (8.4-10.2); Carbon Dioxide 31 mmol/L (22-30); Chloride 103 mmol/L (98-107); Estimated CRCL calculation 64 ml/min; Estimated Glomerular Filt Rate > 60; Glucose 113 mg/dL (65-110); Phosphorus 3.2 mg/dL (2.5-4.5); Potassium 3.1 mmol/L (3.4-5.0); Sodium 139 mmol/L (137-145)
[2022-11-19] MEDS: PANTOPRAZOLE SODIUM IV 40 MG VIAL IV PUSH (08:40)
[2022-11-19] MEDS: LORATADINE 10 MG TABLET PO (08:40)
--- NOTE | 2022-11-19 12:58 | PM.DS ---
DS: Admitting Diagnosis Discharge Date 11/19/22 Admitting Diagnosis SBO DS: Discharge Diagnosis Discharge Diagnosis (1) Abdominal pain: Code(s): R10.9 - Unspecified abdominal pain Status: Acute Assessment and Plan: -as above (2) Nausea and vomiting: Code(s): R11.2 - Nausea with vomiting, unspecified Status: Acute Assessment and Plan: RESOLVES (3) History of hysterectomy: Code(s): Z90.710 - Acquired absence of both cervix and uterus Status: Acute (4) History of oophorectomy: Status: Acute (5) SBO (small bowel obstruction): Code(s): K56.609 - Unspecified intestinal obstruction, unspecified as to partial versus complete obstruction Status: Acute Assessment and Plan: -noted on CT abd/pelv -repeat small-bowel xr reveals small retraction has resolved -d/c NG tube -start clear diet per General surgery tolerate diet well, advance to regular diet (6) GERD (gastroesophageal reflux disease): Code(s): K21.9 - Gastro-esophageal reflux disease without esophagitis Status: Acute Assessment and Plan: -resume PPI when no longer NPO DS: Summary Hospital Course Reason for hospitalization: SBO Hospital Course: This is a 62-year-old female with past medical history significant for dyslipidemia, GERD, recurrent small-bowel obstruction, remote history of hysterectomy, remote history of oophorectomy.? Patient presents to the emergency room due to abdominal pain diffusely localized intermittent 10/10 in intensity colic like for 1 day duration has not been able to eat accompanied by nausea and vomiting had 1 small bowel movement the day prior has not been able to pass gas, Time Spent with Patient Time attestation: Total time spent providing and/or coordinating discharge services: Specific discharge activities: 35MIN Exam Narrative: General: No acute distress, non toxic appearing Eyes: PERRL, no scleral icterus HEENT: NCAT, external ears normal, MMM, NG in place Respiratory: No respiratory distress, Lungs CTA bilaterally, no wheezing Cardiovascular: RRR, no murmur Abdominal: Soft, nontender, non distended, no rebound or guarding, +BS Musculoskeletal: Moves all 4 extremities, no edema Neurological: A/Ox3, speech clear, no facial asymmetry Skin: Warm, dry, no rashes Psychiatric: Normal affect, normal mood Const: General: comfortable, no acute distress, well developed, alert, awake and average body habitus Nutritional Appearance: average body habitus Orientation/consciousness: patient oriented x3 HENMT: Head: normal to inspection, normocephalic and atraumatic Ears: hearing grossly normal bilaterally Face/Nose/Sinus: normal facial exam Face and sinus: normal facial exam Eyes: General: appearance normal, both eyes and all related structures Pupils: Equal, round and reactive pupils present EOM: EOMs intact bilaterally Neck: Neck: full ROM, no lymphadenopathy and no JVD Thyroid: thyroid normal Lymphatic: no lymphadenopathy noted Resp: Effort & Inspection: normal respiratory effort and able to speak in complete sentences Auscultation: clear to auscultation bilaterally Cardio: Jugular venous distension: no JVD Rate: regular rate Rhythm: regular rhythm Heart sounds: S1 normal heart sound present and S2 normal heart sound present GI: Inspection: distended Auscultation: Hyperactive bowel sounds present : General: Yes deferred Skin: Rashes: no rashes Wounds: no wounds Neuro: General: patient oriented x3 and CN's II-XI intact bilaterally Cranial nerves: Yes CN's II-XII intact bilaterally and Yes Equal, round and reactive pupils present Cognition (Neuro): normal cognition Speech: normal speech Gait exam (Neuro): Normal gait present Motor exam (neuro): 5/5 motor strength present throughout Sensory Exam: No Sensory deficit (Neuro) Extrem: General: normal to inspection, full ROM, no joint enlargement an
== END 2022-11-19 14:15 | disposition home or self-care (01) | DRG 390 ==
LOC: ANHED 19:49 → ANH3MEDSUR 21:24
PROVIDERS: Emergency Medicine; Physician Assistant; Surgery; Admitting Provider Internal Medicine; Emergency Provider Emergency Medicine; PCP Family Medicine; Visit Provider Hospitalist
DX: K56.609 Unspecified intestinal obstruction, unspecified as to partial versus complete obstruction (principal); E07.9 Disorder of thyroid, unspecified; E78.5 Hyperlipidemia, unspecified; K21.9 Gastro-esophageal reflux disease without esophagitis; Z20.822 Contact with and (suspected) exposure to COVID-19; Z90.710 Acquired absence of both cervix and uterus
CPT/HCPCS: 36415; 74018; 74177; 74250; 80048; 80053; 81001; 83605; 83690; 83735; 84100; 85025; 85027; 87637; 96361; 96365; 96372; 96375; 96376; 99285; A9270; C9113; G0378; J0131; J1170; J1200; J1650; J1885; J2270; J2405; J7030; Q9967

== ENCOUNTER 2022-12-31 14:56 | Outpatient (CLI) | payer OTHER, SELFPAY ==
--- NOTE | ~2022-12-31 | DEXA_ITS ---
Bone Density Report Name: LORENZO SPIVEY Age: 62 Sex: Female Ethnicity: White Date of : 1960 Indication: postmenopausal; screening for osteoporosis; hysterectomy; Referring Provider: HAKEEM, SUSY Mendes Study: Bone densitometry was performed. Exam Date: December 31, 2022 Accession number: [id number] Bone Density: Region BMD T-score Z-score Classification AP Spine(L1-L4) 1.049 0.0 1.5 Normal Femoral Neck (Left) 0.784 -0.6 0.7 Normal Total Hip (Left) 0.970 0.2 1.2 Normal Femoral Neck (Right) 0.875 0.2 1.6 Normal Total Hip (Right) 0.987 0.4 1.4 Normal Total Hip Mean 0.978 0.3 1.3 Normal World Health Organization criteria for BMD impression classify patients as: Normal (T-score at or above -1.0), Osteopenia (T-score between -1.0 and -2.5), or Osteoporosis (T-score at or below -2.5). 10-year Fracture Risk: FRAX not reported because: All T-scores for Spine Total, Hip Total, Femoral Neck at or above -1.0 Clinical Information Provided by Patient: Has used the following medications: Vitamin D, Calcium Has the following medical conditions: Hysterectomy Patient maximum height was 64.25 Menopause Age: 47 Drinks caffeinated beverages Onset of menses at age 15 Number of children 3 Impression: The patient has normal bone mass. Discussion: BONE DENSITY IS ABOVE THE MINIMUM DESIRABLE LEVEL AT ALL SKELETAL SITES TESTED. This patient?s bone mineral density is above the minimum desirable level (T-score -1.0 or better) at all sites measured. The patient should follow a healthful lifestyle (good nutrition with adequate calcium and vitamin D, and appropriate weight-bearing exercise). Follow-Up: Consider repeating this study in 5 years or sooner if there is some new clinical indication. Reported by: JANETTE on 12/31/2022 3:27:00 PM. Reviewed, dictated and finalized at location AD[facility] MORENO
--- NOTE | ~2022-12-31 | MM_ITS ---
EXAMINATION: MM screening keshia BI w raymundo HISTORY: Screening mammogram TECHNIQUE: Craniocaudal and mediolateral oblique 3-D tomosynthesis images were obtained and synthetic 2-D images were generated. CAD analysis was submitted and interpreted. COMPARISON: 10/30/2019, 05/18/2017 bilateral screening mammogram examinations BREAST PARENCHYMAL COMPOSITION: The breasts are heterogeneously dense, which may obscure small masses . FINDINGS: There is no evidence of suspicious mass, calcification, or architectural distortion to sugg est malignancy in either breast. There has been no suspicious interval change. IMPRESSION: 1. No mammographic evidence of malignancy. 2. Recommend routine screening mammography in one year. BI-RADS Category 1: Negative Reviewed, dictated and finalized at location A. HANDLER
== END 2022-12-31 14:57 | disposition home or self-care (01) ==
PROVIDERS: PCP Family Medicine; Visit Provider Family Medicine
DX: Z12.31 Encounter for screening mammogram for malignant neoplasm of breast (principal); Z91.89 Other specified personal risk factors, not elsewhere classified; Z78.0 Asymptomatic menopausal state
CPT/HCPCS: 77063; 77067; 77080

== ENCOUNTER 2023-01-27 00:27 | Day surgery (SDC) | payer OTHER, SELFPAY ==
[2023-01-17 14:56] VITALS: BMI 24.3
--- NOTE | 2023-01-26 14:06 | PM.HPGS ---
History of Present Illness History of Present Illness Consent: Risks, benefits, and alternatives have been discussed and questions answered. Patient agrees to proceed with procedure. Chief complaint: neoplasm screening Narrative: Jeanette Gandara is a 63 year old female referred for colon cancer screening. I had performed a colonoscopy on her 11 years ago which was unremarkable. Review of Systems Review of Systems: All systems reviewed & are unremarkable except as noted in HPI and below PMFSH Past Medical History Medical History GERD (gastroesophageal reflux disease) SBO (small bowel obstruction) Thyroid disorder Surgical History Surgical History History of hysterectomy History of oophorectomy Family History Family History Father Cancer Hypertension Mother Kidney disease Hypertension Sibling Kidney disease Grandparent Cancer Kidney disease Social History Social History Smoking status: Never smoker Alcohol intake: current Substance use: never Substance use type: does not use Lack of Transportation: No Lack of Food: Never True Current Housing: I Have Housing Concerned About Future Housing: No Difficulty Paying Gas/Electric Bills: No Difficulty Paying for Meds: No Currently Unemployed: No Education: High School Diploma/GED Difficulty w/ Childcare or Family Care: No Living arrangements: with family Spiritual care concerns: No Meds Home Medications and Allergies Home Medications Medication Instructions Recorded Confirmed Type atorvastatin 10 mg tablet 10 mg PO DAILY 11/16/22 01/17/23 History cholecalciferol (vitamin D3) 125 125 mcg PO DAILY 11/16/22 01/17/23 History mcg (5,000 unit) tablet (Vitamin D3) multivitamin 1 tablet PO DAILY 11/16/22 01/17/23 History omeprazole 20 mg capsule,delayed 20 mg PO BID 11/16/22 01/17/23 History release Allergies Allergy/AdvReac Type Severity Reaction Status Date / Time Sulfa (Sulfonamide Allergy Severe HIVES Verified 01/27/23 07:20 Antibiotics) Exam Const: General: alert Orientation/consciousness: patient oriented x3 Resp: Auscultation: clear to auscultation bilaterally Cardio: Rhythm: regular rhythm GI: GI Palp: Yes Soft to palpation and No Tenderness to palpation present (GI) Neuro: General: patient oriented x3 Assessment and Plan Assessment and plan (1) Colon cancer screening: Code(s): Z12.11 - Encounter for screening for malignant neoplasm of colon Status: Acute Assessment and Plan: Colonoscopy with possible biopsy or polypectomy or cautery or injection of substances.
[2023-01-27 07:21] VITALS: BP 145/92; PULSE 82; RESP 20; TEMP 36.1; O2SAT 100
[2023-01-27] MEDS: LACTATED RINGERS 1,000 ML 150 ML IV CONT (07:34)
--- NOTE | 2023-01-27 08:12 | P.PNAN_ITS ---
Anes - Initial Pre Proc Eval Procedure: Operation Date: 01/27/23 08:30 Proposed Procedures p Screening Colonoscopy - Evaristo Mosley MD Date/Time: 01/27/23 08:12 Surgeon: Evaristo Mosley MD Pre Op Diagnosis: neoplasm screening Patient Data Age: 63 Gender: F Height: 1.63 m Weight: 65.4 kg Last Vital Signs Temp 96.9 F L 01/27/23 07:21 Pulse 82 01/27/23 07:21 Resp 20 01/27/23 07:21 BP 145/92 H 01/27/23 07:21 Pulse Ox 100 01/27/23 07:21 O2 Del Method Room Air 01/27/23 07:21 Allergies Allergy/AdvReac Type Severity Reaction Status Date / Time Sulfa (Sulfonamide Allergy Severe HIVES Verified 01/27/23 07:20 Antibiotics) Home Medications Medication Instructions Recorded Confirmed Type atorvastatin 10 mg tablet 10 mg PO DAILY 11/16/22 01/17/23 History cholecalciferol (vitamin D3) 125 125 mcg PO DAILY 11/16/22 01/17/23 History mcg (5,000 unit) tablet (Vitamin D3) multivitamin 1 tablet PO DAILY 11/16/22 01/17/23 History omeprazole 20 mg capsule,delayed 20 mg PO BID 11/16/22 01/17/23 History release Patient hx anesthesia problems: none Family hx anesthesia problems: none Results Review: All pre-operative results and documents have been reviewed as part of the pre- operative evaluation. [facility] Past Medical History Medical History GERD (gastroesophageal reflux disease) SBO (small bowel obstruction) Thyroid disorder Surgical History Surgical History History of hysterectomy History of oophorectomy Family History Family History Father Cancer Hypertension Mother Kidney disease Hypertension Sibling Kidney disease Grandparent Cancer Kidney disease Social History Social History Smoking status: Never smoker Alcohol intake: current Substance use: never Substance use type: does not use Lack of Transportation: No Lack of Food: Never True Current Housing: I Have Housing Concerned About Future Housing: No Difficulty Paying Gas/Electric Bills: No Difficulty Paying for Meds: No Currently Unemployed: No Education: High School Diploma/GED Difficulty w/ Childcare or Family Care: No Living arrangements: with family Spiritual care concerns: No Anes - Eval Final PreProcedure Day of Procedure 01/27/23 08:12 Patient weight: normal Heart: regular rate and rhythm Lungs: clear to auscultation Airway: Mallampati scale class II Neurological: alert and oriented Last oral intake: >/= 8 hours ASA classification: II Emergent: no Anesthetic plan: proceed Anesthesia type and monitoring: general GIVS and standard monitoring Results Review: All pre-operative results and documents have been reviewed as part of the pre- operative evaluation. Informed Consent: The patient's anesthetic plan and its attendant risks and benefits were discussed with the patient/family/POA. Questions were solicited and answers provided to the satisfaction of the patient/family/POA.
[2023-01-27 08:49] VITALS: BP 131/81; PULSE 78; RESP 20; O2SAT 97
[2023-01-27 08:59] VITALS: BP 132/89; PULSE 72; RESP 20; O2SAT 97
[2023-01-27 09:09] VITALS: BP 145/93; PULSE 68; RESP 20; O2SAT 99
== END 2023-01-27 09:22 | disposition home or self-care (01) ==
PROVIDERS: PCP Family Medicine; Visit Provider Internal Medicine Gastroenterology
PROC: 0DJD8ZZ Inspection of Lower Intestinal Tract, Via Natural or Artificial Opening Endoscopic (ICD-10-PCS; CPT 45378; principal; 2023-01-27 08:30)
DX: Z12.11 Encounter for screening for malignant neoplasm of colon (principal); K57.30 Diverticulosis of large intestine without perforation or abscess without bleeding; K21.9 Gastro-esophageal reflux disease without esophagitis
CPT/HCPCS: 45378; J2704; J7120